=== PATIENT | female | born 1995 | race Caucasian/White ===

== ENCOUNTER 2016-09-01 19:52 | Emergency (ER) | payer OTHER ==
[2016-09-01] MEDS ORDERED: ONDANSETRON 4 MG ODT BU ONE (20:06)
[2016-09-01] MEDS ORDERED: ONDANSETRON 4 MG ODT ONE (20:08)
[2016-09-01 20:17] VITALS: PULSE 119; RESP 20; TEMP 98.4; O2SAT 100
[2016-09-01 20:17] LABS: APPEARANCE,URINE Cloudy; BILIRUBIN,URINE NEGATIVE (NEGATIVE); COLOR,URINE Yellow; GLUCOSE, URINE (UA) NEGATIVE (NEGATIVE); KETONES,URINE NEGATIVE (NEGATIVE); LEUKOCYTE ESTERASE ,URINE 2+ (NEGATIVE); NITRATE,URINE NEGATIVE (NEGATIVE); OCCULT BLOOD,URINE 2+ (NEG-TRACE); UROBILINOGEN,URINE 0.2 (0.2-1.0 EU)
[2016-09-01 20:31] LABS: RBC,URINE 60-80 (0-3AV/HPF); WBC,URINE 125-150 (0-5AV/HPF)
[2016-09-01] MEDS ORDERED: APAP/HYDROCODONE 325/5 TAB PO ONE (20:36)
[2016-09-01] MEDS ORDERED: APAP/HYDROCODONE 325/5 TAB ONE (20:37)
[2016-09-01 20:58] VITALS: BP 141/80
== END 2016-09-01 21:22 | disposition home or self-care (01) | DRG 690 ==
LOC: ED 19:52
DX: N39.0 Urinary tract infection, site not specified (principal)
CPT/HCPCS: 81001; 99283